=== PATIENT | female | born 1945 | race Caucasian/White ===

== ENCOUNTER 2016-10-01 13:17 | Emergency (ER) | payer MEDICARE, OTHER ==
[~2016-10-01] VITALS: Ht 160 cm; Wt 81.5 kg
[~2016-10-01 13:17] MED LIST: CA C1TAB86 PO; DESO15CR25 TOP; ESOM40CA41 PO; HYDR-4150 PO; MULT-36 PO; OXYC-284 PO
[2016-10-01 13:26] VITALS: BP 155/74; PULSE 67; RESP 18; O2SAT 98
[2016-10-01 13:48] LABS: BASOPHILS % (AUTO) 0.7 % (0-3); EOSINOPHILS % (AUTO) 3.8 % (0-5); MONOCYTES % (AUTO) 8.6 % (4-12); Mean Corpuscular Hemoglobin 30.6 pg (27.0-35.0); Mean Corpuscular Volume 93.1 fL (81-100); NEUTROPHILS % (AUTO) 62.9 % (40-74); Platelet Count 339 bil/L (150-400)
[2016-10-01 14:05] LABS: INR 0.95 ratio
--- NOTE | 2016-10-01 15:15 | ED.REPORT ---
HPI-GI Bleed Date of Service Oct 01, 2016 ED Provider: Neal Ramos MD Pt is a 70 year old female with a history of a-fib, controlled with Eloquis, who presents to the ED with concerns for hematochezia that started earlier today. She additionally reports increased nausea that she attributes to her Barrettes Esophagus, but denies any vomiting, hematemesis, fevers, or any abdominal pain. Pt reports that when she went to the bathroom today, there was a large amount of bright red blood in the toilet and on the toilet paper. She denies this ever happening in the past. She has no other complaints. Nursing Notes Stated Complaint: NAUSEA/ANAL BLEEDING/PT ON BLOOD THINNER Chief Complaint: Female Abdominal Pain Nursing Notes Reviewed: Yes Allergies: Coded Allergies: TAPE (Verified Allergy, Mild, 05/15/15) RASH Scheduled Desonide (Desonide Cream) 15 Gm Cream..g. 1 APPLIC TOP prn Esomeprazole Magnesium (Nexium) 40 Mg Capsule.dr 40 MG PO DAILY Scheduled PRN Hydrocodone/Acetaminophen ([place] 5-325 Tablet) 1 Each Tablet 1 EACH PO PRN PRN Oxycodone HCl/Acetaminophen 5-325 (Percocet 5-325) 1 Each Tablet 1-2 TABLET PO Q4-6H PRN PRN For Pain Miscellaneous Medications Ca Carb & Gluc/Mag Ox & Gluc (Calcium Magnesium Caplet) 1 Each Tablet 1 EACH PO Multivitamin (Daily Multiple Vitamin) 1 Each Tablet 1 EACH PO General Time Seen by Provider: 15:20 Chief Complaint Chief Complaint: Stool bright red blood Bleeding Severity: Moderate Hx Obtained From: Patient Arrived By: Walk-in Onset Occurred: 5 - 8 hours ago Symptom Duration: Since onset Severity: Current: No pain currently Severity: Maximum: No pain Similar Sx Previous: Yes Past Medical History Past Medical History pacemaker heart murmur SVT and bradycardia broken heel left leg fibromyalgia depression Barrettes Esophagus Reports: GERD Reports: Atrial fibrillation, Gallbladder disease Past Surgical History meniscus repair pacemaker installation Reports: Cholecystectomy, Hysterectomy Smoking History Former Smoker Social History Alcohol Use: "Social" Other Social History: Good social support, , Local resident Ambulatory Status Independent Review of Systems Constitutional: Denies: Chills, Fever, Malaise, Weakness - generalized Respiratory: Denies: Non-productive cough, Shortness of breath, Wheezing Cardiovascular: Denies: Chest pain, Syncope GI: Reports: Hematochezia, Nausea, Denies: Abdominal pain, Diarrhea, Vomiting Skin: Denies Diaphoresis Neurologic: Denies: Abnormal movement, Change LOC, Headache, Syncope, Weakness Complete sys rev & neg: except as marked. Physical Exam Initial Vital Signs Vital Signs (First) Date Time Temp Pulse Resp B/P Pulse Ox O2 Delivery O2 Flow Rate FiO2 10/01/16 13:26 36.1 67 18 155/74 98 Room Air Initial VS: Reviewed Head / Eyes: Atraumatic, Normocephalic, PERRL ENT: Mucous membranes moist, Conjunctiva normal, No scleral icterus Neck: Supple, Non-tender, Full range of motion Skin: Warm, Dry, No cyanosis Neurologic: Alert, Oriented, Nonfocal Psychiatric: Mood/affect normal, Behavior normal, Normal thought content General/Constitutional: Awake, Alert, No acute distress, Well appearing, Well developed, Well nourished, Cooperative Respiratory / Chest: Atraumatic, Breath sounds NL, Breath sounds = bilat, No respiratory distress Cardiovascular: Heart rate NL, Heart sounds NL, No gallop, No murmurs, No rubs Abdomen: Atraumatic, Soft, Non-tender, No guarding, No rebound Rectum / Perineum: Atraumatic, No gross blood No melena Guaiac negative Interpretation & Diagnostics Lab Results Interpretation Result Diagram: 10/01/16 1338 10/01/16 1338 Test 10/01/16 13:38 White Blood Count 8.7th/mm3 (3.8-10.1) Red Blood Count 4.64mil/mm3 (3.90-5.20) Hemoglobin 14.2g/dL (12.0-15.6) Hematocrit 43.2% (35.0-46.0) Mean Corpuscular Volume 93.1fL (81-100) Mean Corpuscular Hemoglobin 30.6pg (27.0-35.0) Mean Corpuscular Hemoglobin Concent 32.9% (32.0-37.0) Red Cell Distribution Width 12.6% (12.3-15.4) Platelet Count 339bil/L (150-400) Neutrophils (%) (Auto) 62.9% (40-74) Lymphocytes (%) (Auto) 23.9% (14-46) Monocytes (%) (Auto) 8.6% (4-12) Eosinophils (%) (Auto) 3.8% (0-5) Basophils (%) (Auto) 0.7% (0-3) Prothrombin Time 10.2sec (8.1-12.5) Prothromb Time International Ratio 0.95ratio Sodium Level 140mEq/L (134-144) Potassium Level 4.7mEq/L (3.5-5.2) Chloride Level 102mEq/L (97-108) Carbon Dioxide Level 24mmol/L (18-29) Blood Urea Nitrogen 15mg/dL (8-27) Creatinine 0.65mg/dL (0.57-1.00) Estimat Glomerular Filtration Rate 130mL/min (>59) Glucose Level 98mg/dL (60-99) Calcium Level 9.2mg/dL (8.5-10.1) Total Bilirubin 0.4mg/dL (0.0-1.2) Aspartate Amino Transf (AST/SGOT) 19U/L (0-50) Alanine Aminotransferase (ALT/SGPT) 15U/L (0-32) Alkaline Phosphatase 61U/L (25-165) Total Protein 7.2g/dL (6.4-8.4) Albumin 4.3g/dL (3.4-5.0) Re-Eval/Medical Decision Med Decision/Clinical Course 70-year-old female history of atrial fibrillation on eliquis presenting with bright red blood per rectum earlier this morning. Denies any symptoms of anemia at this time. No hematemesis, hemoptysis, abdominal pain, melena. Her hemoglobin is normal here, Hb 14 here. Guaiac negative. No gross blood. Given normal exam and normal hemoglobin and no events of bleeding, patient may be discharged home. 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 Also advised to follow up with primary doctor in 1-2 days. She has a colonoscopy scheduled for later this year and they can discuss whether to expediate this process. Return precautions given. Source of Hx: Old records Re-Evaluation/Progress : Time of Eval: 16:00 Re-Evaluation/Progress Note: Pt is rechecked and informed of her diagnosis and the plan to discharge her at this time. She understands and agrees, all questions are addressed. Counseled Regarding: Diagnosis, Lab results, When/why to return to ED Discharge & Departure Impression: Primary Impression: Rectal bleeding Disposition: Home Discharge Condition All VS Reviewed: Yes Condition: Stable Patient Instructions: Rectal Bleeding (ED) Additional Instructions: Thank you for seeking care in the Emergency Department today. Luckily, we did not find any blood present upon your exam. Like I explained before, this does not necessarily mean that you were not bleeding earlier. Your hemoglobin is normal, and I feel comfortable sending you home. Return to the emergency department if recurring bleeding, dizziness, fevers, or any other concerning symptoms. Follow up with your primary care provider later this week. I hope you feel better soon. Referrals: Ranjan Nassar MD (PCP) Chandana Attestation Portions of this note were transcribed by Myesha Modi. I, Dr. Ramos personally performed the history, physical exam and medical decision-making; I reviewed and confirmed the accuracy of the information in the transcribed note. Signed by: Chandana Gong, 10/01/2016 1543 copies to: Ranjan Nassar MD, Ben M MD Oct 01, 2016 15:15 KIRAN MODI Oct 01, 2016 15:49
[2016-10-01 16:19] VITALS: BP 125/83; PULSE 61; RESP 18; O2SAT 97
[2016-12-04] MEDS ORDERED: APIX5TAB PO (14:46)
[2016-12-04] MEDS ORDERED: CYCL10TA9 PO (14:46)
[2016-12-04] MEDS ORDERED: POLY17PO6 PO (14:46)
[2016-12-04] MEDS ORDERED: ESOM40CA41 PO (14:46)
[2016-12-04] MEDS ORDERED: OXYC1TAB24 PO (14:46)
== END 2016-10-01 15:50 | disposition home or self-care (01) ==
LOC: SED 13:17
DX: K62.5 Hemorrhage of anus and rectum (principal); I48.91 Unspecified atrial fibrillation; K21.9 Gastro-esophageal reflux disease without esophagitis; Z87.891 Personal history of nicotine dependence; Z88.8 Allergy status to other drugs, medicaments and biological substances

== ENCOUNTER 2016-12-05 14:05 | Day surgery (SDC) | payer MEDICARE, OTHER ==
[~2016-12-05] VITALS: Ht 162.6 cm; Wt 80.0 kg
[~2016-12-05 14:05] MED LIST changes: +APIX5TAB PO; -CA C1TAB86 PO; +CYCL10TA9 PO; -DESO15CR25 TOP; -HYDR-4150 PO; +Lactated Ringer's 1,000 ML IV ONE; -MULT-36 PO; -OXYC-284 PO; +OXYC1TAB24 PO; +POLY17PO6 PO
[2016-12-05] MEDS ORDERED: Propofol 10,000 mCg/mL 20 mL Inj ONE (14:06)
[2016-12-05 14:51] VITALS: BP 130/66; PULSE 60; RESP 17; O2SAT 95
[2016-12-05] MEDS ORDERED: Lactated Ringer's 1,000 ML IV SCH (15:48)
--- NOTE | 2016-12-05 15:48 | PCM.HPANE ---
Patient Data Surgeon Admitting Provider: Attending Provider:Mark Curtis MD Primary Care Physician:Ranjan Nassar MD Other Provider:Espinoza Silva Anesthesia Reason for Visit Change In Bowel Habit, Dysphagia Ht/WT & BMI Height (Feet): 5 Height (Inches): 4 Weight (Kilograms): 80 Body Mass Index 30.00 Allergies Coded Allergies: TAPE (Verified Allergy, Mild, BLISTERS, 12/05/16) RASH Past Anesthesia History Anesthesia History: Denies:: Abnormal Airway, Anesthesia Reactions, Difficult Intubation, Fam Anesthesia Reaction, Fam Malignant Hypertherm, Malignant Hyperthermia Diabetes History Hx Diabetes?: No MRSA MRSA: No Medications Blood Thinner: Pradaxa Last Dose Blood Thinner: Nov 26, 2016 Hypertension Medication: No Home Meds Incl Beta Darian: No Reported Medications oxyCODONE-Acetaminophen 5-325 mg 1 Each Tablet1 Tab PO Q6H PRN For Pain Ref 0 12/04/16 Esomeprazole Magnesium (Nexium)40 Mg Capsule.dr40 Mg PO DAILY Ref 0 12/04/16 Polyethylene Glycol 3350 (Miralax)17 Gm Powd.pack17 Gm PO 12/04/16 Apixaban (Eliquis)5 Mg Tablet5 Mg PO BID 12/04/16 Cyclobenzaprine 10 Mg Ashitv38 Mg PO BID PRN Spasm 12/04/16 Discontinued Reported Medications Hydrocodone/Acetaminophen ([place] 5-325 Tablet)1 Each Tablet1 Each PO PRN PRN 05/15/15 Esomeprazole Magnesium (Nexium)40 Mg Capsule.dr40 Mg PO DAILY 30 Days Ref 0 02/17/15 Multivitamin (Daily Multiple Vitamin)1 Each Tablet1 Each PO 02/17/15 Desonide (Desonide Cream)15 Gm Cream..g.1 Applic TOP prn #1 TUBE Ref 0 02/17/15 Ca Carb & Gluc/Mag Ox & Gluc (Calcium Magnesium Caplet)1 Each Tablet1 Each PO 02/17/15 Discontinued Scripts Oxycodone HCl/Acetaminophen 5-325 (Percocet 5-325)1 Each Tablet1-2 Tablet PO Q4- 6H PRN For Pain #20 TABLET Prov:Lynette Gonsales MD 05/15/15 History History of ENT Problems?: Yes HEENT History: Positive for:: Cataracts (beginning of cataracts) Dysphagia (choking on water OCCASIONALY) Denies:: Abnormal Airway Difficult Intubation Hearing Problem Hx of Heart Problems?: Yes Cardiovascular History: Positive for:: Heart Murmur (hx of ) Irregular Heartbeat (SVT, BRADYCARDIA) Pacemaker Denies:: AICD Atrial Fibrillation Chest Pain Congestive Heart Failure Hypertension Valvular Heart Disease Hx of Respiratory Problem?: Yes Respiratory History: Positive for:: Cough Denies:: Asthma COPD Hemoptysis Pneumonia Tuberculosis Hx Neurologic Problems?: Yes Neurological History: Denies:: CVA Dementia Hx of GI Problems?: Yes Gastrointestinal History: Positive for:: Gastroesphageal Reflux Denies:: Cirrhosis Diverticulitis Gall Bladder Disease (GONE) Hiatal Hernia Rectal Bleeding Hx of Problems?: Yes Genitourinary History: Positive for:: Urinary Tract Infection Female Hx: Positive for:: Problems with Breasts? (lt.breast biopsy yrs ago ( benign cyst)) Denies:: Currently Hx Musculoskeletal Problems?: Yes Musculoskeletal History: Denies:: Joint Replacement Hx of Psycho/Social Problems?: Yes Psycho Social History: Denies:: Anxiety Hx Depression Hx Surgeries?: Yes (hyst,ovary removal,meniscus repair,robyn, pacemaker) Hx Any Other Health Problems?: Yes Other History: Denies:: Cancer Thyroid Disease History Blood Transfusions: Denies:: Blood Transfuse Reaction Blood Transfusions Hx Diabetes: No Hx Alcohol Use: Yes (OCCASSIONLY)Hx Substance Use: No Smoking Status: Unknown if Ever Smoker Have You Smoked inLast 12 mo: Yes (quit Oct 2013) Stop/Bang Treated for Sleep Apnea?: Yes Do You Have a CPAP Machine?: No (NO LONGER WEARS - SLEEP STUDY SAID IT HAS RESOLVED ) S-Snoring: Do You Snore Loudly: No T-Tired: feel tired, fatigued: No O-Obsered: Observed not breath: Yes P-Blood Pressure: treated: No B- Body Mass Index > 35 kg/m2: No A- Age over 50: Yes N- Neck Large Circumference: No G- Gender Male: No TONY Total Score: 2 TONY Risk Assessment: Low Risk, <3 Yes Risk Assessment Category Category 1A: Patient has history of documented sleep apnea, and HAS NOT received any narcotic, sedative or anesthesia administration during this stay. Category 1B: Patient has history of documented sleep apnea, and HAS received any narcotic , sedative or anesthesia administration during this stay Category 2: Patient has SUSPECTED Obstructive Sleep Apnea, and HAS received any narcotic , sedative or anesthesia administration during this stay. Category 3: Patient has SUSPECTED Obstructive Sleep Apnea and HAS NOT received narcotic, sedative or anesthesia administration during this stay. Category 4: Outpatient in Procedural Areas with known sleep apnea or who screen positive for High Risk via the STOP/BANG questionnaire. Exam Exam Vital Signs Vital Signs Date Time Temp Pulse Resp B/P Pulse Ox O2 Delivery O2 Flow Rate FiO2 12/05/16 14:51 36.7 60 17 130/66 95 Room Air General Appearance: Oriented X3 HEENT/AIRWAY: MP 2 Lungs: Normal Air Movement Heart: Regular Rate/Rhythm Plan Impression Patient chart reviewed, patient interviewed and anesthestic plan with risks, benefits, and alternatives discussed, and informed consent obtained. ASA Physical Status: ASA3 Severe Disease Anesthetic Plan: MAC Bene/Risks/Altern/Consents: Yes HP Complete Prior to Induction: Yes Noe Ferguson MD Dec 05, 2016 15:48
[2016-12-05] MEDS ORDERED: Ondansetron 2 mg/mL 2 mL Inj IVPUSH PRN (15:50)
[2016-12-05] MEDS ORDERED: MetoCLOpramide 5 mg/mL 2 mL Inj IVPUSH PRN (15:50)
[2016-12-05] MEDS: Lactated Ringer's 1,000 ML IV ONE ×2 (16:00→16:35)
[2016-12-05 16:41] VITALS: BP 111/63; PULSE 67; RESP 10; O2SAT 93
--- NOTE | 2016-12-05 16:48 | PCM.ANEP2 ---
Post Anesthesia Evaluation ASA/CMS Post Anesthesia VS in Patient's Normal Range?: Yes Resp Stable; Airway Patent?: Yes CV Function & Hydration Stable: Yes Mental Status Recovered?: Yes Pain control Satisfactory?: Yes N/V Control Satisfactory?: Yes Noe Ferguson MD Dec 05, 2016 16:48
--- NOTE | 2016-12-05 16:48 | PCM.ANEP1 ---
Post Anesthesia Phase 1 PACU Phase 1 Assessment Vital Signs Vital Signs Date Time Temp Pulse Resp B/P Pulse Ox O2 Delivery O2 Flow Rate FiO2 12/05/16 16:41 67 10 111/63 93 Room Air 12/05/16 14:51 36.7 60 17 130/66 95 Room Air Anesthetic Administered: MAC Level of Alertness: Awake, talking Pain: No Nausea or Vomiting: No Oxygen Delivery: Room Air Lungs: Normal Air Movement Noe Ferguson MD Dec 05, 2016 16:48
[2016-12-05 16:51] VITALS: BP 121/68; PULSE 62; RESP 14; O2SAT 98
[2016-12-05 17:00] VITALS: BP 113/76; PULSE 67; RESP 16; O2SAT 97
--- NOTE | 2016-12-05 22:48 | ENDO ---
[address] [address] ENDOSCOPY PROCEDURE PATIENT: LIANNA BAUTISTA : 1945 MR#: [id number] ADMIT: 12/05/2016 JOB ID: [id number] PROCEDURE: Esophagogastroduodenoscopy. INDICATION: Dysphagia. Patient's ASA classification, Mallampati score, and medications as per Dr. Noe Ferguson's anesthesia report. INSTRUMENT USED: GIF H 180 J. PROCEDURE DETAILS: After informed consent was obtained, the patient was brought to the GI suite where she was placed on oxygen via nasal cannula and monitored with continuous pulse oximeter, telemetry, and blood pressure monitoring. A time-out was performed. Then, she was placed in a left lateral decubitus position. Medications were administered for sedation. A bite block was placed. The standard EGD scope was inserted through the bite block and advanced under direct visualization to the second portion of the duodenum without difficulty. FINDINGS: 1. Normal-appearing duodenal bulb, first and second portion. 2. Normal-appearing pylorus, antrum and gastric body. 3. Retroflexed views in the gastric body revealed a normal-appearing cardia and fundus. 4. The GE junction was at approximately 39 cm. At the GE junction, there was a prominent esophageal fold which was biopsied. 5. Normal-appearing esophagus. Multiple biopsies were obtained in the mid esophagus secondary to the patient's complaint of dysphagia. IMPRESSION: Prominent fold at the gastroesophageal junction. Otherwise, normal exam to second portion of duodenum. RECOMMENDATIONS: 1. Await biopsy results. 2. Proceed to colonoscopy. COMPLICATIONS: None. ESTIMATED BLOOD LOSS: Less than 5 mL. SECOND PROCEDURE: Colonoscopy. INDICATION: Change in bowel habits. Please see above for ASA classification, Mallampati score, and medications. INSTRUMENT: PCF H 180 AL. PREPARATION QUALITY: Good. PROCEDURE IN DETAIL: After completion of the EGD exam, a digital rectal exam was performed and was unremarkable. The colonoscope was then inserted into the rectum and advanced under direct visualization to the cecum, which was identified by the presence of the ileocecal valve and appendiceal orifice. Once the cecum was reached, the colonoscope was withdrawn back into the rectum and the mucosa and lumen were examined. In the rectum, retroflexion was performed. Following retroflexion, remaining air in the rectum was suctioned, and procedure was completed. FINDINGS OF PROCEDURE: In the proximal ascending colon, there was a diminutive polyp that was removed with cold biopsy forceps. Just distal to this, there was a flat polyp that measured approximately 5-6 mm. The polyp was lifted using normal saline and then removed with a hot snare. IMPRESSIONS: Two ascending colon polyps. RECOMMENDATION: 1. Avoid NSAIDs and anticoagulants for 72 hours. 2. Repeat colonoscopy pending polyp pathology results. 3. Follow up in GI clinic. COMPLICATION: None. ESTIMATE OF BLOOD LOSS: Less than 5 mL.
--- NOTE | 2016-12-09 17:20 | PATH ---
SURGICAL PATHOLOGY Attending Physician:Mary Angulo CASE STATUS: Signed Out PATIENT NAME: LIANNA BAUTISTA PID: [id number] : 1945 DATE COLLECTED:12/05/2016 00:00 SPECIMEN: 1: Esophagus, Biopsy 2: Esophagus, Biopsy 3: Colon, Biopsy CLINICAL HISTORY: 1). PROXIMAL ESOPHAGEAL FOLD BIOPSY 2). MID ESOPHAGUS BIOPSY 3). ASCENDING POLYPS FINAL DIAGNOSIS: 1.PROXIMAL ESOPHAGEAL FOLD, BIOPSY: CARDIA-TYPE MUCOSA WITH NO DIAGNOSTIC ABNORMALITY, SEE COMMENT. Negative for intestinal metplasia. Negative for dysplasia and malignancy. 2.MID ESOPHAGUS, BIOPSY: SQUAMOUS EPITHELIUM WITH NO DIAGNOSTIC ABNORMALITY. Intraepithelial eosinophils are not increased. Negative for dysplasia and malignancy. 3.ASCENDING COLON, POLYPS, BIOPSIES: MULTIPLE FRAGMENTS OF SESSILE SERRATED ADENOMA. ICD10 code D12.2 NOTE: 1. The proximal esophageal fold biopsies show fragments of cardia-type mucosa consistent with inlet patch in the appropriate clinical and endoscopic setting. GROSS DESCRIPTION: Received are three formalin-filled containers, each labeled with the patient' s name. 1. Received in formalin, labeled with the patient' s name and "proximal fold", is one fragment of cazares, soft tissue measuring 0.2 x 0.1 x 0.1 cm. The fragment is totally submitted in cassette 1A. 2. Received in formalin, labeled with the patient' s name and "mid esoph BX", are three fragments of cazares, soft tissue ranging in size from 0.1 x 0.1 x 0.1 cm to 0.2 x 0.2 x 0.1 cm. All fragments are totally submitted in cassette 2A. 3. Received in formalin, labeled with the patient' s name and "ascending polyps", are multiple fragments of cazares, soft tissue ranging in size from 0.1 x 0.1 x 0.1 cm to 0.5 x 0.4 x 0.3 cm. The larger fragment is divided, and all fragments are totally submitted in cassette 3A. ([id number]) MICRO DESCRIPTION: See diagnosis. ICD-9 CODES: CPT CODES: 1: 02844 2: 32835 3: 82739 Electronically Signed Out Hope Keane MD [facility], [place] [address] Technical component performed at [facility], [address], [place], [address]
== END 2016-12-05 23:59 | disposition home or self-care (01) ==
LOC: END 14:05
PROVIDERS: ATTEND Internal Medicine Gastroenterology
DX: K22.719 Barrett's esophagus with dysplasia, unspecified (principal); K21.9 Gastro-esophageal reflux disease without esophagitis; D12.2 Benign neoplasm of ascending colon; R19.4 Change in bowel habit; I47.1 Supraventricular tachycardia; I49.5 Sick sinus syndrome; G47.33 Obstructive sleep apnea (adult) (pediatric); Z79.01 Long term (current) use of anticoagulants; Z95.0 Presence of cardiac pacemaker; Z87.891 Personal history of nicotine dependence
CPT/HCPCS: 43239; 45380; 45381; 45385; 88305; J7120

== ENCOUNTER 2017-01-03 13:46 | Emergency (ER) | payer MEDICARE, OTHER ==
[~2017-01-03] VITALS: Ht 162.6 cm; Wt 81.8 kg
[~2017-01-03 13:46] MED LIST changes: -Lactated Ringer's 1,000 ML IV ONE
[2017-01-03 13:48] VITALS: BP 136/86; PULSE 70; RESP 14; O2SAT 96
--- NOTE | 2017-01-03 14:00 | ED.REPORT ---
HPI-General Illness Date of Service Jan 03, 2017 ED Provider: Dr. Sae Rai The patient is a 71 year old female w/ a hx of A-fib with pacemaker who presents to the ED due to hematochezia for the past 2 months increasing in severity over the past week. She has recently had a colonoscopy and endoscopy with no acute findings. Two different GI doctors suggested it was constipation. She has tried a mineral oil enema, fleets 2 pack 90 minutes apart. Prior to the enema, she had a massive stool blowout while driving, mixed with blood and diarrhea. She has had varying amounts of stool, diarrhea, and uncontrolled bowel movements mixed with blood clear bowel movements since trying these methods. Her symptoms are increasing in severity. Her most recent bowel movement was a formed stool with blood around the side. She has an appointment with Dr. Bright in one week. Nursing Notes Stated Complaint: BLEEDING RECTUM Chief Complaint: Female Abdominal Pain Nursing Notes Reviewed: Yes Allergies: Coded Allergies: TAPE (Verified Allergy, Mild, BLISTERS, 12/05/16) RASH Scheduled Apixaban (Eliquis) 5 Mg Tablet 5 MG PO BID Esomeprazole Magnesium (Nexium) 40 Mg Capsule.dr 40 MG PO DAILY Scheduled PRN Cyclobenzaprine (Cyclobenzaprine) 10 Mg Tablet 10 MG PO BID PRN PRN Spasm oxyCODONE-Acetaminophen 5-325 mg (oxyCODONE-Acetaminophen 5-325 mg) 1 Each Tablet 1 TAB PO Q6H PRN PRN For Pain Miscellaneous Medications Polyethylene Glycol 3350 (Miralax) 17 Gm Powd.pack 17 GM PO General Time Seen by MD: 14:00 Chief Complaint Blood in stool Hx Obtained From: Patient Arrived By: Walk-in Sudden in Onset?: Yes Onset Occurred: Just prior to arrival Symptom Duration: Since onset Severity: Current: No pain currently Recent Healthcare: Recent doctor visit Similar Sx Previous: Yes Past Medical History Past Medical History pacemaker heart murmur SVT and bradycardia broken heel left leg fibromyalgia depression Barrettes Esophagus Reports: GERD Reports: Atrial fibrillation, Gallbladder disease Past Surgical History meniscus repair pacemaker installation Reports: Cholecystectomy, Hysterectomy Smoking History Unknown if Ever Smoker Social History Alcohol Use: "Social" Other Social History: Good social support, , Local resident Ambulatory Status Independent Review of Systems Full Review of Systems GI: Reports: Bloody/tarry stool, Diarrhea, Hematochezia, Denies: Constipation Complete sys rev & neg: except as marked. Physical Exam Vital Signs Vital Signs Date Time Temp Pulse Resp B/P Pulse Ox O2 Delivery O2 Flow Rate FiO2 01/03/17 13:48 36.8 70 14 136/86 96 Room Air Initial VS: Reviewed Respiratory: Breath sounds normal, Clear to auscultation Cardiovascular: Regular rate & rhythm, Heart sounds normal Abdomen / GI: Soft, Non-tender, No guarding, No rebound, No distention Extremities: Vascular intact, Neuro intact, No swelling, No tenderness Skin: Warm, Dry Neurologic: Alert, Oriented Psychiatric: Mood/affect normal, Behavior normal General/Constitutional: Awake, Alert, Cooperative, Not toxic appearing Head / Eyes: Atraumatic, Normocephalic, PERRL Rectal for Blood: Positive: Unable, no stool in vault scant blood at rectal verge and small internal hemorrhoid finger tip of glove came out light yellow Interpretation & Diagnostics Lab Results Interpretation Result Diagram: 01/03/17 1434 01/03/17 1434 Test 01/03/17 14:34 White Blood Count 8.2th/mm3 (3.8-10.1) Red Blood Count 4.41mil/mm3 (3.90-5.20) Hemoglobin 13.5g/dL (12.0-15.6) Hematocrit 40.8% (35.0-46.0) Mean Corpuscular Volume 92.5fL (81-100) Mean Corpuscular Hemoglobin 30.6pg (27.0-35.0) Mean Corpuscular Hemoglobin Concent 33.1% (32.0-37.0) Red Cell Distribution Width 12.2% (12.3-15.4) Platelet Count 293bil/L (150-400) Neutrophils (%) (Auto) 64.7% (40-74) Lymphocytes (%) (Auto) 25.2% (14-46) Monocytes (%) (Auto) 6.8% (4-12) Eosinophils (%) (Auto) 2.7% (0-5) Basophils (%) (Auto) 0.4% (0-3) Prothrombin Time 10.0sec (8.1-12.5) Prothromb Time International Ratio 0.94ratio Sodium Level 140mEq/L (134-144) Potassium Level 4.0mEq/L (3.5-5.2) Chloride Level 103mEq/L (97-108) Carbon Dioxide Level 21mmol/L (18-29) Blood Urea Nitrogen 16mg/dL (8-27) Creatinine 0.69mg/dL (0.57-1.00) Estimat Glomerular Filtration Rate 121mL/min (>59) Glucose Level 100mg/dL (60-99) Calcium Level 9.5mg/dL (8.5-10.1) Total Bilirubin 0.4mg/dL (0.0-1.2) Aspartate Amino Transf (AST/SGOT) 15U/L (0-50) Alanine Aminotransferase (ALT/SGPT) 14U/L (0-32) Alkaline Phosphatase 54U/L (25-165) Total Protein 7.5g/dL (6.4-8.4) Albumin 4.3g/dL (3.4-5.0) Hold Monk Top Tube Received (Received) Re-Eval/Medical Decision Med Decision/Clinical Course No obvious life-threatening bleeding overall it sounds rectal in nature there is a small palpable internal hemorrhoid, hemoglobin is stable this issue sounds chronic and the patient has had a relatively normal colonoscopy and endoscopy. Extensive discussion is held with the patient regarding return and follow-up precautions. It is recommended strongly that she return the ER she thinks she is hemorrhaging. Initially she is recommended to use Preparation H suppositories rectally as indicated. Return and follow-up precautions given. Counseled Regarding: Diagnosis, Lab results, Need for follow-up, When/why to return to ED Discharge & Departure Shift Change Sign-Out Patient Care Transferred: Yes Discussed Complaint(s): Yes Laboratory Evaluation: Back, reviewed by me Imaging Studies: Ordered, not yet done Primary Impression: Rectal bleeding Disposition: Home Transfer Requested at: 14:50 Transfer Accepted at: 14:50 Discharge Condition All VS Reviewed: Yes Condition: Stable Additional Instructions: Overall it does not look like your hemorrhaging. Try using Preparation H suppositories after bowel movements as directed [id number]. Return to ER if you feel like your hemorrhaging, have more significant bleeding, lightheadedness chest pain, shortness of breath or any other concerns. Call your GI doctor and primary care doctor today for close follow-up appointments. Referrals: Ranjan Nassar MD (PCP) Scribe Attestation Portion of this note were transcribed by Dee Dee Hill. I, Dr. Rai, personally performed the history, physical exam, and medical decision-making: I reviewed and confirmed the accuracy for the information in the transcribed note. Signed by: estephania Encarnacion, 01/03/17 1500 copies to: Ranjan Nassar MD, Timothy S DO Jan 03, 2017 14:00 Dee [place] Hill Jan 03, 2017 14:10
[2017-01-03 14:41] LABS: BASOPHILS % (AUTO) 0.4 % (0-3); EOSINOPHILS % (AUTO) 2.7 % (0-5); MONOCYTES % (AUTO) 6.8 % (4-12); Mean Corpuscular Hemoglobin 30.6 pg (27.0-35.0); Mean Corpuscular Volume 92.5 fL (81-100); NEUTROPHILS % (AUTO) 64.7 % (40-74); Platelet Count 293 bil/L (150-400)
[2017-01-03 14:58] LABS: INR 0.94 ratio
[2017-01-03] MEDS ORDERED: PHEN1SUP94 RECTAL (15:24)
[2017-01-03 15:34] VITALS: BP 140/81; PULSE 59; RESP 16; O2SAT 97
== END 2017-01-03 15:34 | disposition home or self-care (01) ==
LOC: SED 13:46
DX: K62.5 Hemorrhage of anus and rectum (principal); K21.9 Gastro-esophageal reflux disease without esophagitis; I48.91 Unspecified atrial fibrillation; M79.7 Fibromyalgia; Z91.048 Other nonmedicinal substance allergy status; Z95.0 Presence of cardiac pacemaker